=== PATIENT | male | born 1975 | race Caucasian/White ===

== ENCOUNTER 2018-03-10 21:10 | Observation (INO) ==
[2018-03-10] MEDS: Nitroglycerin 0.4 MG TAB.SUBL SL PRN ×3 (22:04→22:16)
[2018-03-10 22:17] LABS: BUN/Creatinine Ratio 17 (6-26); Blood Urea Nitrogen 9 mg/dL (6-20); Calcium 9.6 mg/dL (8.6-10.3); Carbon Dioxide 25 mEq/L (23-29); Chloride 105 mEq/L (98-107); Glucose 199 mg/dL (70-105); Osmolality,Calculated 288 (280-300); Potassium 3.5 mEq/L (3.5-5.1); Sodium 137 mEq/L (136-145); Troponin I < 0.03 ng/mL (< 0.04); eGFR For African Americans > 60 (> 60); eGFR For Non-African Americans > 60 (> 60)
--- NOTE | 2018-03-10 22:19 | Emergency Department Note ---
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 Patient reports he woke up this morning and just has felt terrible all day. Reports laying in bed most of the day. States that he is also had left sternal chest discomfort with some radiation up into his jaw that he reports as a heavy pressure. Has no history of coronary artery disease, but does have a family history. States he has a history of diabetes as well. Has had some sick contacts recently, but symptoms have been read. He is also complaining of exertional dyspnea. Some subjective fevers at home. No real cough. No pain or swelling in his legs. Severity scale (1-10): 6 - Related Data Home Medications Medication Instructions Recorded Confirmed Unable To Obtain [Unable to Obtain] 03/11/18 03/11/18 Allergies Allergy/AdvReac Type Severity Reaction Status Date / Time Hydromorphone [From Dilaudid] Allergy Rash Verified 07/15/17 22:28 Paroxetine [From Paxil] Allergy Hallucinati Verified 07/15/17 22:28 ng Review of Systems: As reviewed in the HPI. All other systems reviewed are negative or normal. Chest Pain PMH - Past Medical History Medical history: Reports: non-contributory, diabetes, hyperlipidemia, hypertension Surgical history: Reports: vasectomy, other Psychiatric history: Reports: anxiety, depression, panic disorder - Social History Smoking Status: Never smoker Alcohol use: Reports: rarely Drug use: Reports: none Physical Exam - General Limitations: no limitations General appearance: alert, in no apparent distress, other (Patient appears ill but nontoxic) - Head Head exam: atraumatic, normocephalic, normal inspection - Eye Eye exam: Present: normal appearance, PERRL, EOMI - ENT ENT exam: normal exam, normal oropharynx, mucous membranes moist - Chest Chest inspection: Present: normal inspection, symmetric chest wall rise - Respiratory Respiratory exam: Present: normal lung sounds bilaterally - Cardiovascular Cardiovascular exam: Present: normal rhythm, tachycardia, normal heart sounds - Abdominal Exam Abdominal exam: Present: soft, Non-Tender. Absent: tenderness, distention, guarding, rebound, rigidity - Extremities Exam Extremities exam: Present: normal inspection, full ROM. Absent: tenderness, pedal edema - Neurological Exam Neurological exam: Present: alert, oriented X3 - Psychiatric Psychiatric exam: Present: normal affect, normal mood - Skin Skin exam: Present: warm, dry, intact, normal color Course Course Narrative: Patient presenting with weakness, chest pain, shortness breath. Patient does not look like he feels well. Check labs, EKG, chest x-ray, troponin and d- dimer. - Reevaluation(s) Reevaluation #1: Workup is unremarkable, but patient still appears unwell. He is diabetic and having chest discomfort. No previous cardiac workup. We will admit for chest pain rule out. Vital Signs Temperature 98.2 F 03/10/18 21:16 Pulse Rate 106 03/10/18 21:16 Respiratory Rate 22 03/10/18 21:16 Blood Pressure 143/88 03/10/18 21:16 O2 Sat by Pulse Oximetry 97 03/10/18 21:16 Temperature 98.2 F 03/11/18 01:20 Pulse Rate 102 03/11/18 01:20 Respiratory Rate 14 03/11/18 01:20 Blood Pressure 148/91 03/11/18 01:20 O2 Sat by Pulse Oximetry 96 03/11/18 01:20 Oxygen Delivery Oxygen Delivery Room Air Chest Pain - Medical Records Medical records reviewed: Yes I reviewed the patient's medical records. - Lab Data Lab results reviewed: Yes I reviewed the patient's lab results. Result diagrams: 03/10/18 21:32 03/10/18 21:32 Lab Results 03/10/18 03/10/18 03/10/18 Range/Units 21:32 21:32 21:32 WBC 7.1 (4.3-11.1) K/mcL RBC 5.01 (4.19-5.50) M/mcL Hgb 16.2 (12.9-16.9) g/dL Hct 43.1 (37.5-50.1) % MCV 86.0 (83.0-100.0) fL MCH 32.3 (28.0-33.3) pg MCHC 37.6 H (31.6-35.5) g/dL RDW 11.8 (11.5-14.5) % Plt Count 208 (140-400) K/mcL MPV 10.5 (9.4-12.4) fL Immature Gran % 0.6 (0-4) % Seg Neutrophils % 53.3 % Lymphocytes % 33.2 % Monocytes % 9.6 % Eosinophils % 2.5 % Basophils % 0.8 % Neutrophils # 3.8 (1.6-8.9) K/mcL Lymphocytes # 2.4 (0.6-4.6) K/mcL Monocytes # 0.7 (0.0-1.3) K/mcL Eosinophils # 0.2 (0.0-0.6) K/mcL Basophils # 0.1 (0.0-0.2) K/mcL Immature Plt Fraction 4.7 (1.1-6.1) % PT (9.4-12.1) Seconds INR APTT (26.0-36.0) Seconds D-Dimer (0-500) ng/mLFEU Sodium 137 (136-145) mEq/L Potassium 3.5 (3.5-5.1) mEq/L Chloride 105 (98-107) mEq/L Carbon Dioxide 25 (23-29) mEq/L BUN 9 (6-20) mg/dL Creatinine 0.54 L (0.70-1.30) mg/dL Est GFR ( Amer) > 60 (> 60) Est GFR (Non-Af Amer) > 60 (> 60) BUN/Creatinine Ratio 17 (6-26) Glucose 199 H (70-105) mg/dL Calculated Osmolality 288 (280-300) Calcium 9.6 (8.6-10.3) mg/dL Troponin I < 0.03 (< 0.04) ng/mL B-Natriuretic Peptide 8 (Less than 100) pg/mL Specimen Rejected 03/10/18 03/10/18 Range/Units 21:32 22:15 WBC (4.3-11.1) K/mcL RBC (4.19-5.50) M/mcL Hgb (12.9-16.9) g/dL Hct (37.5-50.1) % MCV (83.0-100.0) fL MCH (28.0-33.3) pg MCHC (31.6-35.5) g/dL RDW (11.5-14.5) % Plt Count (140-400) K/mcL MPV (9.4-12.4) fL Immature Gran % (0-4) % Seg Neutrophils % % Lymphocytes % % Monocytes % % Eosinophils % % Basophils % % Neutrophils # (1.6-8.9) K/mcL Lymphocytes # (0.6-4.6) K/mcL Monocytes # (0.0-1.3) K/mcL Eosinophils # (0.0-0.6) K/mcL Basophils # (0.0-0.2) K/mcL Immature Plt Fraction (1.1-6.1) % PT 10.6 (9.4-12.1) Seconds INR 1.0 APTT 28.9 (26.0-36.0) Seconds D-Dimer < 215 (0-500) ng/mLFEU Sodium (136-145) mEq/L Potassium (3.5-5.1) mEq/L Chloride (98-107) mEq/L Carbon Dioxide (23-29) mEq/L BUN (6-20) mg/dL Creatinine (0.70-1.30) mg/dL Est GFR ( Amer) (> 60) Est GFR (Non-Af Amer) (> 60) BUN/Creatinine Ratio (6-26) Glucose (70-105) mg/dL Calculated Osmolality (280-300) Calcium (8.6-10.3) mg/dL Troponin I (< 0.04) ng/mL B-Natriuretic Peptide (Less than 100) pg/mL Specimen Rejected Volume - Radiology Data Radiology results reviewed: Yes I reviewed the patient's radiology results. - EKG Data EKG attestation: Yes I reviewed and interpreted this EKG. EKG results narrative: Sinus tach, rate 106,. 148, QRS 92, QTC 409, normal axis, no acute ischemic changes
[2018-03-10 22:40] LABS: Basophils # 0.1 K/mcL (0.0-0.2); Basophils % 0.8 %; Eosinophils # 0.2 K/mcL (0.0-0.6); Eosinophils % 2.5 %; Hematocrit 43.1 % (37.5-50.1); Hemoglobin 16.2 g/dL (12.9-16.9); Immature Granulocytes % 0.6 % (0-4); Immature Platelets 4.7 % (1.1-6.1); Lymphocytes # 2.4 K/mcL (0.6-4.6); Lymphocytes % 33.2 %; Mean Corpuscular Hemoglobin 32.3 pg (28.0-33.3); Mean Platelet Volume 10.5 fL (9.4-12.4); Monocytes # 0.7 K/mcL (0.0-1.3); Monocytes % 9.6 %; Neutrophils # 3.8 K/mcL (1.6-8.9); Platelet Count 208 K/mcL (140-400); Red Blood Count 5.01 M/mcL (4.19-5.50); Red Cell Distribution Width 11.8 % (11.5-14.5); Segmented Neutrophils % 53.3 %
[2018-03-10 22:40] LABS: Prothrombin Time 10.6 Seconds (9.4-12.1)
[2018-03-10 22:42] LABS: Mean Corpuscular HGB Conc 37.6 g/dL (31.6-35.5)
[2018-03-10 22:43] LABS: Activated Partial Thrombo Time 28.9 Seconds (26.0-36.0)
[2018-03-10 22:46] LABS: D-Dimer < 215 ng/mLFEU (0-500)
[2018-03-11] MEDS ORDERED: 0.9 % Sodium Chloride 1,000 ML IVC ONE (00:01)
[2018-03-11] MEDS ORDERED: Ondansetron 4 MG/2 ML VIAL ONE (00:57)
[2018-03-11] MEDS ORDERED: Ondansetron 4 MG/2 ML VIAL IVP ONE (01:09)
--- NOTE | 2018-03-11 01:14 | Emergency Department Note ---
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 Diabetes mellitus complication status: without complication Qualified Code(s): E11.9 - Type 2 diabetes mellitus without complications Disposition: Admitted As Inpatient Condition: Good General Adult HPI - General Chief complaint: ED Chest Pain Stated complaint: CP Time Seen by Provider: 03/10/18 21:25 Source: patient Mode of arrival: ambulatory Limitations: no limitations Nursing Notes Reviewed: Yes Vital Signs Reviewed: Yes - History of Present Illness Pain Scale: 6 - Related Data Home Medications Medication Instructions Recorded Confirmed Unable To Obtain [Unable to Obtain] 03/11/18 03/11/18 Allergies Allergy/AdvReac Type Severity Reaction Status Date / Time Hydromorphone [From Dilaudid] Allergy Rash Verified 07/15/17 22:28 Paroxetine [From Paxil] Allergy Hallucinati Verified 07/15/17 22:28 ng Past Medical History - Past Medical History Medical history: Reports: non-contributory, diabetes, hyperlipidemia, hypertension Surgical history: Reports: vasectomy, other Psychiatric history: Reports: anxiety, depression, panic disorder - Social History Smoking Status: Never smoker Smokeless Tobacco Status: No Alcohol use: Reports: rarely Drug use: Reports: none Physical Exam - General Limitations: no limitations General appearance: alert, in no apparent distress, other (Patient appears ill but nontoxic) Course Vital Signs Temperature 98.2 F 03/10/18 21:16 Pulse Rate 106 03/10/18 21:16 Respiratory Rate 22 03/10/18 21:16 Blood Pressure 143/88 03/10/18 21:16 O2 Sat by Pulse Oximetry 97 03/10/18 21:16 Temperature 98.2 F 03/11/18 01:20 Pulse Rate 102 03/11/18 01:20 Respiratory Rate 14 03/11/18 01:20 Blood Pressure 148/91 03/11/18 01:20 O2 Sat by Pulse Oximetry 96 03/11/18 01:20 Oxygen Delivery Oxygen Delivery Room Air Medical Decision Making - Lab Data Result diagrams: 03/11/18 03:55 03/11/18 03:55 Lab Results 03/10/18 03/10/18 03/10/18 Range/Units 21:32 21:32 21:32 WBC 7.1 (4.3-11.1) K/mcL RBC 5.01 (4.19-5.50) M/mcL Hgb 16.2 (12.9-16.9) g/dL Hct 43.1 (37.5-50.1) % MCV 86.0 (83.0-100.0) fL MCH 32.3 (28.0-33.3) pg MCHC 37.6 H (31.6-35.5) g/dL RDW 11.8 (11.5-14.5) % Plt Count 208 (140-400) K/mcL MPV 10.5 (9.4-12.4) fL Immature Gran % 0.6 (0-4) % Seg Neutrophils % 53.3 % Lymphocytes % 33.2 % Monocytes % 9.6 % Eosinophils % 2.5 % Basophils % 0.8 % Neutrophils # 3.8 (1.6-8.9) K/mcL Lymphocytes # 2.4 (0.6-4.6) K/mcL Monocytes # 0.7 (0.0-1.3) K/mcL Eosinophils # 0.2 (0.0-0.6) K/mcL Basophils # 0.1 (0.0-0.2) K/mcL Immature Plt Fraction 4.7 (1.1-6.1) % PT (9.4-12.1) Seconds INR APTT (26.0-36.0) Seconds D-Dimer (0-500) ng/mLFEU Sodium 137 (136-145) mEq/L Potassium 3.5 (3.5-5.1) mEq/L Chloride 105 (98-107) mEq/L Carbon Dioxide 25 (23-29) mEq/L BUN 9 (6-20) mg/dL Creatinine 0.54 L (0.70-1.30) mg/dL Est GFR ( Amer) > 60 (> 60) Est GFR (Non-Af Amer) > 60 (> 60) BUN/Creatinine Ratio 17 (6-26) Glucose 199 H (70-105) mg/dL Calculated Osmolality 288 (280-300) Calcium 9.6 (8.6-10.3) mg/dL Troponin I < 0.03 (< 0.04) ng/mL B-Natriuretic Peptide 8 (Less than 100) pg/mL Specimen Rejected 03/10/18 03/10/18 Range/Units 21:32 22:15 WBC (4.3-11.1) K/mcL RBC (4.19-5.50) M/mcL Hgb (12.9-16.9) g/dL Hct (37.5-50.1) % MCV (83.0-100.0) fL MCH (28.0-33.3) pg MCHC (31.6-35.5) g/dL RDW (11.5-14.5) % Plt Count (140-400) K/mcL MPV (9.4-12.4) fL Immature Gran % (0-4) % Seg Neutrophils % % Lymphocytes % % Monocytes % % Eosinophils % % Basophils % % Neutrophils # (1.6-8.9) K/mcL Lymphocytes # (0.6-4.6) K/mcL Monocytes # (0.0-1.3) K/mcL Eosinophils # (0.0-0.6) K/mcL Basophils # (0.0-0.2) K/mcL Immature Plt Fraction (1.1-6.1) % PT 10.6 (9.4-12.1) Seconds INR 1.0 APTT 28.9 (26.0-36.0) Seconds D-Dimer < 215 (0-500) ng/mLFEU Sodium (136-145) mEq/L Potassium (3.5-5.1) mEq/L Chloride (98-107) mEq/L Carbon Dioxide (23-29) mEq/L BUN (6-20) mg/dL Creatinine (0.70-1.30) mg/dL Est GFR ( Amer) (> 60) Est GFR (Non-Af Amer) (> 60) BUN/Creatinine Ratio (6-26) Glucose (70-105) mg/dL Calculated Osmolality (280-300) Calcium (8.6-10.3) mg/dL Troponin I (< 0.04) ng/mL B-Natriuretic Peptide (Less than 100) pg/mL Specimen Rejected Volume Attestation Statement - Attestation Attestation: I, Benito Galaviz MD, personally evaluated this patient and discussed their management with the resident physician. I reviewed the resident's note and agree with the documented findings, medical decision making, and plan of care. 42-year-old male presents to the emergency department with a complaint of generalized weakness and malaise all day today. He complains of left mid substernal chest pain all day. Some radiation to the neck and jaw. Some mild shortness of breath. Some nausea. Some diaphoresis. No prior history of heart disease. Pain has been pretty much constant all day and does not seem worse with exertion and is not relieved with rest. On examination patient is a well-developed well-nourished male in no acute distress. He is alert and oriented 3. There is no cyanosis. Mild diaphoresis. Chest is nontender to palpation. Breath sounds are clear and equal bilaterally. Heart regular with a mild tachycardia. Abdomen soft with normal bowel sounds. EKG shows a sinus tachycardia with ventricular rate of 106. Nonspecific T-wave abnormality. No acute ST segment elevation or depression. Chest x-ray negative. Labs reviewed and unremarkable. Troponin normal. The hospitalist, Dr. Webber, was consulted and accepted admission of the patient. Patient had an episode of vomiting a large amount just prior to being transferred from the emergency department to the floor and he became diaphoretic and had increased chest pain. Repeat EKG was obtained at that time and showed a sinus tachycardia with ventricular rate of 108. Nonspecific T- wave abnormality. No acute ST segment elevation or depression. No change from initial EKG.
[2018-03-11] MEDS ORDERED: Naloxone 0.4 MG/ML INJ IVP PRN (01:17)
[2018-03-11] MEDS ORDERED: D5% in Water 1,000 ML IVC PRN (01:17)
[2018-03-11] MEDS ORDERED: *HR* Dextrose 50 % in Water (Syg) 50 ML SYRINGE IVP PRN (01:17)
[2018-03-11] MEDS ORDERED: Acetaminophen 325 MG TABLET PO PRN (01:17)
[2018-03-11] MEDS ORDERED: Dextrose Gel 15 GM/37.5 ML TUBE PO PRN ×2 (01:17)
[2018-03-11] MEDS ORDERED: *HR* FentaNYL (PF) 100 MCG/2 ML VIAL IVP PRN (01:20)
--- NOTE | 2018-03-11 02:05 | Internal Med History&Physical ---
Date of Encounter: 03/11/18 Time of Encounter: 01:00 Internal Medicine - H&P: HPI Chief complaint: chest pain Admitted From: Emergency Dept Plans for Post Hospital Care: Home History of present illness: Mr. Nixon is a 42 year old male who presents with complaints of chest pain and worsening indigestion since 8:30 in the morning yesterday. It awoke him from sleep and he's been having worsening indigestion, chest pain, and nausea throughout the day. states he has had some chills but no fevers, cough, or night sweats. Because the pain persisted and worsened, he came to the ER. Initial workup was negative, and he was admitted to hospitalist service. Upon my assessment of the patient in the ER, patient is resting in bed comfortably. He does state he still has some mild indigestion but no chest pain. He denies any difficulty breathing. Upon further questioning, he does have frequent and daily right upper quadrant abdominal pain often associated with certain types of food ingestion. I reviewed his old records and note he had a gallbladder ultrasound a little over one year ago showing gallstones and gallbladder polyp. He still has his gallbladder. He also states he has been taking daily anti-inflammatory medications for his hip arthritis. He has had an upset stomach lately. He denies any hematemesis, coffee-ground emesis, and/ or melena. He denies any prior history of gastric or duodenal ulcers. Patient's cardiac risk factors include type 2 diabetes and family history. There is also family history of gallbladder disease as well. Past Med Surg Social Fam HX - Past Medical History Attestation: Yes The following information was validated with the patient. Source: patient, old records reviewed, obtained from family Medical history: diabetes, hyperlipidemia, hypertension Psychiatric history: anxiety, depression, panic disorder - Past Surgical History Surgical History: vasectomy - Social History Smoking Status: Never smoker Smokeless Tobacco Status: No Alcohol use: rarely Drug use: none Current living situation: Home, With Family Activity Level: Independent ambulation Recent Out of Country Travel Within the Last 8 Weeks: No - Family History Mother Living Status: Hx Family Cardiac Disorders: Yes Hx Family Cancer: Yes Hx Family GI Disorders: No Father History Unknown: Yes Internal Medicine - H&P: Meds Unable To Obtain [Unable to Obtain] 03/11/18 [History] 3 Allergy/AdvReac Type Severity Reaction Status Date / Time Hydromorphone [From Dilaudid] Allergy Rash Verified 07/15/17 22:28 Paroxetine [From Paxil] Allergy Hallucinati Verified 07/15/17 22:28 ng - Constitutional Constitutional: no chills, no fever(s), no night sweats - EENT Eyes: no decreased night vision, no diplopia Ears: no ear pain, no tinnitus Nose, mouth and throat: no nasal congestion, no sinus pressure, no sore throat - Cardiovascular Cardiovascular ROS IM: chest pain, diaphoresis, no dyspnea, no dyspnea on exertion, no orthopnea, no palpitations, no paroxysmal nocturnal dyspnea, no syncope - Respiratory Respiratory: no cough, no dyspnea, no hemoptysis - Gastrointestinal Gastrointestinal: abdominal pain, heartburn, nausea, vomiting, no coffee ground emesis, no diarrhea, no hematemesis, no hematochezia, no melena - Genitourinary Genitourinary ROS male: no dysuria, no flank pain, no hematuria - Musculoskeletal Musculoskeletal ROS IM: arthralgias, back pain - Integumentary Integumentary IM: no rash, no jaundice - Neurological Neurological ROS: no dizziness, no focal weakness, no frequent falls, no headache(s) - Psychiatric Psychiatric: no anxiety, no depression - Endocrine Endocrine IM: no polydipsia, no polyuria - Hematologic/Lymphatic Hematologic/Lymphatic: no easy bruising, no lymphadenopathy - Allergic/Immunologic Allergic/Immunologic: GI upset with certain foods (fatty and greasy), no wheezing - Constitutional Vitals: Temp Pulse Resp BP Pulse Ox 98.2 F 102 14 148/91 96 03/11/18 01:20 03/11/18 01:20 03/11/18 01:20 03/11/18 01:20 03/11/18 01:20 General appearance: Present: cooperative, A&O X 3, pleasant, no acute distress, answers questions appropriately - Head Head exam: Present: atraumatic, normal inspection - Eye Eye exam: Present: EOMI, normal appearance, PERRL. Absent: scleral icterus Pupils: Present: normal accommodation - ENT ENT exam: Present: mucous membranes dry, normal exam, normal oropharynx - Neck Neck exam general surgery: Present: full ROM, supple. Absent: lymphadenopathy, tenderness, nuchal rigidity, thyromegaly - Respiratory Respiratory exam: Present: CTAB. Absent: chest wall tenderness, rales, respiratory distress, rhonchi, wheezes - Cardiovascular Cardiovascular exam: Present: RRR, +S1, +S2. Absent: diastolic murmur, systolic murmur - GI/Abdominal GI/Abdominal exam: Present: normal bowel sounds, soft, tenderness (mild RUQ pain -- > radiates to chest), no peritoneal signs. Absent: guarding, hepatomegaly, mass, rebound, splenomegaly - Extremities Exam Extremities exam: Present: full ROM, normal capillary refill, warm, radial pulses palpable and symmetrical. Absent: calf tenderness, joint swelling, tenderness - Back Exam Back exam: Present: normal inspection. Absent: CVA tenderness (L), CVA tenderness (R) - Neurological Exam Neurological exam: Present: alert, CN II-XII intact, oriented X3, no focal deficits - Psychiatric Psychiatric exam: Present: normal affect, normal mood - Skin Skin exam: Present: dry, warm. Absent: rash Internal Med - H&P Results - Labs CBC & Chem 7: 03/10/18 21:32 03/10/18 21:32 - EKG Data -: EKG Interpreted by Myself - EKG Data Prior EKG available for review: no EKG comments: 03/11/18 02:09 Sinus tachycardia -- HR 105; no acute findings - Diagnostic Studies Chest x-ray Status: image reviewed by me (negative) - Assessment and plan (1) Chest pain Current Visit: Yes Status: Acute Assessment and plan: 1. Will trend troponins and EKG's. 2. Etiology likely GI in nature (GB). 3. Stress testing can be done if necessary, but would not pursue until after GI work-up. 4. GI work-up as below. Qualifiers: Chest pain type: other chest pain Qualified Code(s): R07.89 - Other chest pain; R07.8 - Other chest pain (2) Right upper quadrant abdominal pain Current Visit: Yes Status: Acute Assessment and plan: 1. GB disease/stones likely etiology of chest pain. 2. Will order GB ultrasound. 3. Patient may need HIDA scan and/or EGD (given chronic NSAID use). 4. will place on IV PPI. (3) Type 2 diabetes mellitus Current Visit: Yes Status: Chronic Assessment and plan: 1. Need ot verify home meds. 2. Hold oral agents. 3. Will use SSI and adjust meds as necessary. 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 Heparin SQ.
[2018-03-11] MEDS: 0.9 % Sodium Chloride 1,000 ML IVC SCH ×2 (02:28→11:52)
[2018-03-11] MEDS: Pantoprazole 40 MG VIAL IVP SCH ×3 (02:28→17:25)
[2018-03-11 04:52] LABS: Basophils # 0.1 K/mcL (0.0-0.2); Basophils % 0.9 %; Eosinophils # 0.1 K/mcL (0.0-0.6); Eosinophils % 1.6 %; Hematocrit 39.1 % (37.5-50.1); Hemoglobin 14.4 g/dL (12.9-16.9); Immature Granulocytes % 0.6 % (0-4); Lymphocytes # 1.9 K/mcL (0.6-4.6); Lymphocytes % 27.1 %; Mean Corpuscular HGB Conc 36.8 g/dL (31.6-35.5); Mean Corpuscular Hemoglobin 31.5 pg (28.0-33.3); Mean Corpuscular Volume 85.6 fL (83.0-100.0); Mean Platelet Volume 10.8 fL (9.4-12.4); Monocytes # 0.6 K/mcL (0.0-1.3); Monocytes % 9.1 %; Neutrophils # 4.1 K/mcL (1.6-8.9); Platelet Count 183 K/mcL (140-400); Red Blood Count 4.57 M/mcL (4.19-5.50); Red Cell Distribution Width 11.9 % (11.5-14.5); Segmented Neutrophils % 60.7 %
[2018-03-11 04:58] LABS: Prothrombin Time 10.9 Seconds (9.4-12.1)
[2018-03-11 05:00] LABS: Activated Partial Thrombo Time 27.5 Seconds (26.0-36.0)
[2018-03-11 05:12] LABS: Alanine Aminotransferase 28 Units/L (7-52); Albumin 3.6 g/dL (3.5-5.7); Albumin/Globulin Ratio 1.6 (1.1-2.2); Alkaline Phosphatase 63 Units/L (34-104); Aspartate Amino Transferase 22 Units/L (13-39); BUN/Creatinine Ratio 19 (6-26); Bilirubin,Total 1.9 mg/dL (0.3-1.0); Blood Urea Nitrogen 9 mg/dL (6-20); Calcium 8.8 mg/dL (8.6-10.3); Carbon Dioxide 25 mEq/L (23-29); Chloride 107 mEq/L (98-107); Chol/HDL Ratio 4.8 (0-4.9); Cholesterol 155 mg/dL (< 200); Globulin 2.2 g/dL (2.4-3.5); Glucose 196 mg/dL (70-105); HDL Cholesterol 32 mg/dL (40-59); LDL Cholesterol,Calculated 89 mg/dL (0-99); Magnesium 1.9 mg/dL (1.6-2.6); Osmolality,Calculated 290 (280-300); Potassium 3.7 mEq/L (3.5-5.1); Sodium 138 mEq/L (136-145); Total Protein 5.8 g/dL (6.4-8.9); Triglycerides 172 mg/dL (< 150); eGFR For African Americans > 60 (> 60); eGFR For Non-African Americans > 60 (> 60)
[2018-03-11] MEDS: Insulin LISPRO 300 UNITS/3 ML VIAL SQ SCH ×3 (06:40→17:26)
[2018-03-11] MEDS: *HR* Heparin 5,000 UNIT/ML VIAL SQ SCH ×2 (06:41→17:26)
--- NOTE | 2018-03-11 13:05 | Internal Med Progress Note ---
Date of Encounter: 03/11/18 Time of Encounter: 11:05 - Assessment and plan (1) Chest pain Current Visit: Yes Status: Acute Assessment and plan: Patient presents with midsternal, persistent chest pain that lasted all day yesterday. Patient reports he awakened with the chest pain, as the day wore on it radiated into his bilateral neck, and upper back between his shoulder blades. He does report associated nausea and vomiting. He reports that he has had this chest pain "for a while". He said normally the pain lasts about 2 hours, this time it was concerning due to the length of time that lasted. Currently, patient reports it is 2/10 and denies shortness of breath, nausea, vomiting, diaphoresis, diarrhea. Physical exam is unremarkable. He is no tenderness in epigastric area, Brennan' s sign negative. Abdomen is soft and nontender with bowel sounds present. AST and ALTs are within normal limits, alk phosphatase is normal. Pt has no leukocytosis, fever, chills. Chest x-ray negative. Gallbladder ultrasound shows cholelithiasis with no sonographic evidence of cholecystitis. Had panic steatosis is noted, no evidence of intra-or extrahepatic ductal dilatation. Stress test ordered for tomorrow. Pt with risk factors of diabetes, HTN. Continue telemetry Pain control Monitor labs and vitals. Qualifiers: Chest pain type: other chest pain Qualified Code(s): R07.89 - Other chest pain; R07.8 - Other chest pain (2) Right upper quadrant abdominal pain Current Visit: Yes Status: Acute Assessment and plan: Pt with cholelithiasis per US 03/11, no acute cholecysitis. Physical exam unremarkable. Labs WNL. Prior gallbladder ultrasound in October, showed cholelithiasis, at least one cholesterol polyp and a small amount of sludge. Also notices at least 1: A stent in the polyp appears stable since 2011. [place], there was no significant dilatation of the common duct. At that time there was hyperechoic liver parenchyma, consistent with mild diffuse fatty infiltration. Discussed hepatic steatosis with pt and , encouraged lifestyle changes. Pt and appeared reluctant, but listened to education. (3) Type 2 diabetes mellitus Current Visit: Yes Status: Chronic Assessment and plan: A1c 8.9% in September,. Will redraw in the a.m. Discussed lifestyle modifications with pt and , they seem reluctant, but listened to education. Continue SSI, accuchecks achs, and diabetic diet. Qualifiers: Diabetes mellitus long-term insulin use: without manager long term care use Diabetes mellitus complication status: without complication Qualified Code(s): E11.9 - Type 2 diabetes mellitus without complications (4) DVT prophylaxis Current Visit: Yes Status: Acute Assessment and plan: Heparin SQ BID. Encourage ambulation (5) HTN (hypertension) Current Visit: Yes Status: Acute Assessment and plan: Pt with multiple elevated BP readings since admission. Pt denies prior history of HTN and is not on an antihypertensive. Renal function is stable, pt is a diabetic. Will add Lisinopril 2.5mg po daily. Continue to monitor labs and vitals per admission order. Qualifiers: Hypertension type: essential hypertension Qualified Code(s): I10 - Essential (primary) hypertension (6) Hypertriglyceridemia without hypercholesterolemia Current Visit: Yes Status: Acute Assessment and plan: Pt denies prior history of HLD. I have encouraged lifestyle modifications. GBUS showed hepatic steatosis. Encouraged pt to start diet modifications and exercise regimen for BP, diabetes , and cholesterol. Pt appears to be reluctant to any modifications and states that he likes to eat fried, fatty foods and is not compliant with diabetic diet. Would recommend recheck with PCP in the next 3-4 mos and initiate treatment if unchanged. - Time Spent With Patient Total time spent is greater than 50% in coordination of care (as documented) at patient's floor/unit and/or counseling patient: less than 15 minutes - Subjective Interval history: Patient was seen and assessed at bedside 11:05 AM. Patient's and in-laws were present. Patient reports that now his chest pain is 2/10. He describes it as midsternal, persistent, lasted all day with associated nausea and vomiting. The pain was present when he awakened yesterday morning. As the day wore on the pain radiated into bilateral neck, as well as upper back between shoulder plates. Patient states he has had this pain frequently in the past, normally lasts approximately 2 hours. Yesterday he could not get it to go away. He reports eating pizza prior to going to bed the night before the onset of the pain. He denies fever, chills. He denies headache, blurred vision, anorexia, weight loss, shortness of breath. Patient does not smoke, use alcohol , or recreational drugs. - Constitutional Vitals: Temp Pulse Resp BP Pulse Ox 98.3 F 106 16 143/93 95 03/11/18 11:23 03/11/18 11:23 03/11/18 11:23 03/11/18 11:23 03/11/18 11:23 General appearance: Present: cooperative, A&O X 3, pleasant, no acute distress, answers questions appropriately - Head Head exam: Present: atraumatic, normal inspection, normocephalic - Eye Eye exam: Present: normal appearance, conjuntiva pink, sclera anicteric - Neck Neck exam general surgery: Present: normal inspection, supple, trachea midline. Absent: lymphadenopathy, tenderness, thyromegaly - Respiratory Respiratory exam: Present: CTAB. Absent: accessory muscle use, chest wall tenderness, decreased breath sounds, prolonged expiratory phase, rales, rhonchi , wheezes - Cardiovascular Cardiovascular exam: Present: RRR, +S1, +S2. Absent: diastolic murmur, gallop, rubs, systolic murmur - GI/Abdominal GI/Abdominal exam: Present: normal bowel sounds, soft. Absent: distended, firm , hepatomegaly, tenderness - Extremities Exam Extremities exam: Present: normal capillary refill, normal inspection, warm, radial pulses palpable and symmetrical. Absent: calf tenderness, cyanotic, pedal edema, tenderness - Neurological Exam Neurological exam: Present: alert, oriented X3, no focal deficits. Absent: altered, facial droop, speech deficit - Skin Skin exam: Present: dry, intact, normal color, warm. Absent: rash Internal Medicine: Result - Labs CBC & Chem 7: 03/11/18 03:55 03/11/18 03:55 Labs: Short CBC 03/11/18 Range/Units 03:55 WBC 6.8 (4.3-11.1) K/mcL Hgb 14.4 D (12.9-16.9) g/dL Hct 39.1 (37.5-50.1) % Plt Count 183 (140-400) K/mcL Neutrophils # 4.1 (1.6-8.9) K/mcL BMP 03/11/18 03:55 Sodium 138 Potassium 3.7 Chloride 107 Carbon Dioxide 25 BUN 9 Creatinine 0.47 L Glucose 196 H Calcium 8.8 Cardiac Enzymes 03/11/18 03/11/18 Range/Units 03:55 09:48 Troponin I < 0.03 < 0.03 (< 0.04) ng/mL Liver Function 03/11/18 Range/Units 03:55 Total Bilirubin 1.9 H (0.3-1.0) mg/dL AST 22 (13-39) Units/L ALT 28 (7-52) Units/L Alkaline Phosphatase 63 (34-104) Units/L Albumin 3.6 (3.5-5.7) g/dL - ABG Interpretation ABG results: PT/INR, D-dimer PT 10.9 Seconds (9.4-12.1) 03/11/18 03:55 D-Dimer < 215 ng/mLFEU (0-500) 03/10/18 22:15 - Impressions Impressions Gallbladder Ultrasound 03/11/18 10:00 IMPRESSION: 1. Cholelithiasis. No sonographic evidence of cholecystitis. 2. Hepatic steatosis. 3. No evidence of intra- or extrahepatic ductal dilatation. D/ / 03/11/2018 10:45:36 Oscar Sanders MD / arturo Interpreting Provider: Oscar Sanders MD Consult Discharge Plan - Plan Referrals: Edwina Lozano CNP [Primary Care Provider] -
[2018-03-12] MEDS: Insulin LISPRO 300 UNITS/3 ML VIAL SQ SCH ×3 (00:33→12:11)
[2018-03-12] MEDS ORDERED: Regadenoson 0.4 MG/5 ML SYRINGE IVP ONE (05:38)
[2018-03-12] MEDS: *HR* Heparin 5,000 UNIT/ML VIAL SQ SCH (06:11)
[2018-03-12 06:12] LABS: Basophils # 0.1 K/mcL (0.0-0.2); Eosinophils # 0.2 K/mcL (0.0-0.6); Eosinophils % 3.1 %; Hematocrit 37.8 % (37.5-50.1); Hemoglobin 13.5 g/dL (12.9-16.9); Immature Granulocytes % 0.4 % (0-4); Lymphocytes # 1.8 K/mcL (0.6-4.6); Lymphocytes % 36.5 %; Mean Corpuscular HGB Conc 35.7 g/dL (31.6-35.5); Mean Corpuscular Hemoglobin 31.1 pg (28.0-33.3); Mean Corpuscular Volume 87.1 fL (83.0-100.0); Mean Platelet Volume 10.4 fL (9.4-12.4); Monocytes # 0.6 K/mcL (0.0-1.3); Monocytes % 11.4 %; Neutrophils # 2.3 K/mcL (1.6-8.9); Platelet Count 164 K/mcL (140-400); Red Blood Count 4.34 M/mcL (4.19-5.50); Red Cell Distribution Width 11.8 % (11.5-14.5); Segmented Neutrophils % 47.6 %
[2018-03-12] MEDS: Pantoprazole 40 MG VIAL IVP SCH (06:16)
[2018-03-12 06:34] LABS: BUN/Creatinine Ratio 16 (6-26); Blood Urea Nitrogen 9 mg/dL (6-20); Calcium 8.5 mg/dL (8.6-10.3); Carbon Dioxide 26 mEq/L (23-29); Chloride 105 mEq/L (98-107); Glucose 245 mg/dL (70-105); Osmolality,Calculated 289 (280-300); Sodium 136 mEq/L (136-145); eGFR For African Americans > 60 (> 60); eGFR For Non-African Americans > 60 (> 60)
[2018-03-12 11:13] VITALS: BP 120/75
--- NOTE | 2018-03-12 13:00 | Discharge Summary ---
- NOTES TO OUTPATIENT PROVIDER Notes to Outpatient Provider: Recommend follow-up within 1-2 weeks for outpatient TTE Orders not resulted at time of discharge: Pending orders 03/11/18 06:00 ECG 12 lead ECG [ECG] AM 0600 03/11/18 12:53 NM dany perf SPECT multi [NM] Routine 03/12/18 05:26 Hgb A1C AM 0400 03/12/18 08:48 EV echocardiogram Routine 03/13/18 04:00 Basic Metabolic Panel AM 0400 Complete Blood Count [HEME] AM 0400 Date of Encounter: 03/12/18 Time of Encounter: 12:58 - Discharge Diagnosis (1) Chest pain Priority: Primary Status: Resolved Comments: presented with chest pain that radiated to bilateral neck and upper back. Serial troponins negative, EKG without acute ST changes. Stress test negative for ischemia or infarct. Patient declined inpatient echocardiogram. Chest pain resolved at time of discharge. Patient was advised to return to ER if chest pain/shortness of breath recurred. Recommend outpatient echocardiogram. Qualifiers: Chest pain type: other chest pain Qualified Code(s): R07.89 - Other chest pain; R07.8 - Other chest pain (2) Right upper quadrant abdominal pain Priority: Primary Status: Resolved Comments: RUQ US with evidence of cholelithiasis, no evidence of cholecystitis or intra-/ extrahepatic ductal dilation. LFTs normal. Etiology unknown; ABD pain resolved spontaneously. Patient declined further inpatient workup/treatment. (3) Type 2 diabetes mellitus Priority: Secondary Status: Chronic Comments: Per history. Uncontrolled, Hgb A1c 9.8%. Likely secondary to dietary noncompliance. Lifestyle modifications encouraged. Continue home diabetes medication regimen. Follow-up with PCP outpatient. Qualifiers: Diabetes mellitus mcfp insulin use: without intermodal customer service use Diabetes mellitus complication status: without complication Qualified Code(s): E11.9 - Type 2 diabetes mellitus without complications (4) HTN (hypertension) Priority: Primary Status: Acute Comments: new diagnosis. BP improved with adding lisinopril. Continue ACEI discharge. Recommend follow-up with PCP within one week for BP recheck. Qualifiers: Hypertension type: essential hypertension Qualified Code(s): I10 - Essential (primary) hypertension (5) Hypertriglyceridemia without hypercholesterolemia Priority: Secondary Status: Acute Comments: Triglycerides 172, LDL 89. Lifestyle/dietary modifications encouraged. Recommend follow-up with PCP Hospital course: Please see assessment and plan for Hospital course Discharge discussed with: patient (Seen and examined at bedside. Patient is new to me, information obtained from chart review and patient report. Patient says he feels back to baseline would like to discharge home today. No further chest pain or shortness of breath. He does have anxiety which she thinks may have contributed chest pain. He is declining to stay for an echocardiogram. Advised to follow-up with his PCP for outpatient cardiology referral. Also advised to return to ER if chest pain/SOB recurs. Patient verbalizes understanding.) - Time Spent with Patient Total time spent providing and/or coordinating discharge services: - Discharge Medications Prescriptions: Lisinopril [Zestril] 2.5 mg PO DAILY #30 tablet Home Medications: Fluticasone Propionate Nasal [Flonase] 1 spr NS BID 03/11/18 [History] Glimepiride [Amaryl] 2 mg PO DAILY 03/11/18 [History] Liraglutide [Victoza 3-Miky] 1.2 mg SQ DAILY 03/11/18 [History] Nabumetone [Relafen] 500 mg PO BID 03/11/18 [History] Omeprazole [PriLOSEC] 20 mg PO DAILY 03/11/18 [History] Lisinopril [Zestril] 2.5 mg PO DAILY #30 tablet 03/12/18 [Rx] Allergies/Adverse Reactions: 3 Allergy/AdvReac Type Severity Reaction Status Date / Time Hydromorphone [From Dilaudid] Allergy Rash Verified 07/15/17 22:28 Paroxetine [From Paxil] Allergy Hallucinati Verified 07/15/17 22:28 ng Date of admission: 03/11/18 00:44 Primary care physician: Edwina Lozano CNP Discharging clinician: Nela Morrison Anticipated date of discharge: 03/12/18 - Constitutional Vitals: Temp Pulse Resp BP Pulse Ox 98.4 F 97 16 120/75 97 03/12/18 11:12 03/12/18 11:12 03/12/18 11:12 03/12/18 11:12 03/12/18 11:12 General appearance: Present: cooperative, A&O X 3, pleasant, no acute distress, answers questions appropriately - Head Head exam: Present: atraumatic, normocephalic - Eye Eye exam: Present: PERRL, conjuntiva pink, sclera anicteric Pupils: Present: PERRL - Neck Neck exam general surgery: Present: supple, trachea midline. Absent: lymphadenopathy - Respiratory Respiratory exam: Present: CTAB. Absent: accessory muscle use, rales, rhonchi, wheezes - Cardiovascular Cardiovascular exam: Present: RRR, +S1, +S2. Absent: diastolic murmur, gallop, rubs, systolic murmur - GI/Abdominal GI/Abdominal exam: Present: normal bowel sounds, soft, no peritoneal signs. Absent: distended, tenderness - Extremities Exam Extremities exam: Present: warm, radial pulses palpable and symmetrical. Absent : calf tenderness, cyanotic, pedal edema - Neurological Exam Neurological exam: Present: CN II-XII intact, oriented X3, no focal deficits. Absent: pronater drift, facial droop, speech deficit - Skin Skin exam: Present: dry, intact - Patient Status Disposition: Home, Self-Care Condition: Good Functional capacity at discharge: independent ambulation Overall status at discharge: patient is back to baseline - Discharge Instructions Instructions: Lisinopril (By mouth), Chest Pain (DC), Diabetes Mellitus Type 2 in Adults (DC), Chronic Hypertension (DC), Hypertension (DC), Anxiety (DC) Follow Up With: Edwina Lozano CNP [Primary Care Provider] - 03/18/18 10:00 am (Please call for follow-up appointment within 7-10 business days) - Diet and Activity Activity: increase activity as tolerated Diet: diabetic diet, low fat, low cholesterol
[2018-03-13 14:47] LABS: Estimated Average Glucose 235 mg/dl; Hemoglobin A1C 9.8 %
--- NOTE | 2018-03-15 12:27 | Electrocardiograph Report ---
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
--- NOTE | 2018-03-15 14:26 | Electrocardiograph Report ---
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
== END 2018-03-12 13:44 | disposition home or self-care (01) ==
LOC: EMEROO 21:10 → 3BNU 21:10
PROVIDERS: ADMIT Internal Medicine; ATTEND Registered Nurse

== ENCOUNTER 2020-05-16 06:08 | Observation (INO) ==
[2020-05-16] MEDS ORDERED: Ibuprofen 600 MG TABLET PO ONE (06:17)
[2020-05-16 06:53] LABS: Bilirubin,Urine Negative (Negative); Blood,Urine Negative (Negative); Clarity,Urine Clear (Clear); Color,Urine Colorless (Yellow); Glucose,Urine (UA) >=1000 mg/dL (Normal); Ketones,Urine Negative (Negative); Leukocyte Esterase,Urine Negative (Negative); Nitrite,Urine Negative (Negative); PH,Urine 6.5 pH Units (5.0-8.0); Protein,Urine Trace mg/dL (Neg-Trace); Specific Gravity,Urine > 1.030 (1.010-1.025); Urobilinogen,Urine Normal (Normal)
[2020-05-16 07:01] LABS: Basophils # 0.1 K/mcL (0.0-0.2); Basophils % 0.9 %; Eosinophils # 0.2 K/mcL (0.0-0.6); Eosinophils % 2.9 %; Hematocrit 39.2 % (37.5-50.1); Hemoglobin 13.8 g/dL (12.9-16.9); Immature Granulocytes % 0.6 % (0-4); Lymphocytes # 1.8 K/mcL (0.6-4.6); Lymphocytes % 26.5 %; Mean Corpuscular HGB Conc 35.2 g/dL (31.6-35.5); Mean Corpuscular Hemoglobin 30.9 pg (28.0-33.3); Mean Corpuscular Volume 87.9 fL (83.0-100.0); Mean Platelet Volume 10.7 fL (9.4-12.4); Monocytes # 0.7 K/mcL (0.0-1.3); Monocytes % 10.2 %; Neutrophils # 3.9 K/mcL (1.6-8.9); Platelet Count 176 K/mcL (140-400); Red Blood Count 4.46 M/mcL (4.19-5.50); Red Cell Distribution Width 11.7 % (11.5-14.5); Segmented Neutrophils % 58.9 %; White Blood Count 6.7 K/mcL (4.3-11.1)
[2020-05-16 07:13] LABS: BUN/Creatinine Ratio 20 (6-26); Blood Urea Nitrogen 14 mg/dL (6-20); Calcium 9.3 mg/dL (8.6-10.3); Carbon Dioxide 25 mEq/L (23-29); Chloride 98 mEq/L (98-107); Glucose 651 mg/dL (70-105); Osmolality,Calculated 303 (280-300); Potassium 4.1 mEq/L (3.5-5.1); Sodium 131 mEq/L (136-145); eGFR For African Americans > 60 (> 60); eGFR For Non-African Americans > 60 (> 60)
[2020-05-16] MEDS ORDERED: Potassium Chloride Elixir 20 MEQ/15 ML UDC PO ONE (07:23)
[2020-05-16] MEDS ORDERED: Insulin Human Regular 100 UNIT in 0.9 % Sodium Chloride 100 ML IVC SCH ×2 (07:30→14:30)
[2020-05-16] MEDS: 0.9 % Sodium Chloride 1,000 ML IVC SCH ×2 (07:49→10:56)
[2020-05-16 07:54] LABS: VBG HCO3 25 mEq/L (21-27); VBG PCO2 39 mmHg (41-51); VBG PH 7.42 pH Units (7.32-7.42); VBG PO2 113 mmHg (25-50)
[2020-05-16] MEDS ORDERED: Lidocaine 1% 20 ML MDV INFILT ONE (10:48)
[2020-05-16] MEDS ORDERED: Doxycycline 100 MG in 0.9 % Sodium Chloride Mini Bag 100 ML IVPB ONE (11:04)
[2020-05-16] MEDS ORDERED: Isovue-370 500 ML BOTTLE IVP ONE (11:35)
[2020-05-16] MEDS ORDERED: Naloxone 0.4 MG/ML INJ IVP PRN (13:37)
[2020-05-16] MEDS ORDERED: Ondansetron 4 MG/2 ML VIAL IVP PRN (13:37)
[2020-05-16] MEDS ORDERED: Acetaminophen 325 MG TABLET PO PRN (13:37)
[2020-05-16] MEDS ORDERED: Insulin Regular, Human 100 UNIT/ML IV PRN (14:25)
[2020-05-16] MEDS ORDERED: D5% in 0.45% NACL 1,000 ML IVC PRN (14:25)
[2020-05-16] MEDS ORDERED: *HR* Dextrose 50 % in Water (Vial) 50 ML VIAL IVP PRN ×2 (14:25→17:22)
[2020-05-16 14:29] LABS: Magnesium 1.9 mg/dL (1.6-2.6); Phosphorous 4.2 mg/dL (2.7-4.5)
[2020-05-16] MEDS ORDERED: 0.45 % Sodium Chloride w/KCl 20 MEQ/1,000 ML MLS IVC SCH (14:30)
[2020-05-16] MEDS ORDERED: Dextrose Gel 15 GM/37.5 ML TUBE PO PRN ×2 (17:22)
[2020-05-16] MEDS ORDERED: D5% in Water 1,000 ML IVC PRN (17:22)
[2020-05-16] MEDS: cefTRIAXone 2,000 MG in Water for inj. (sterile) 20 ML IVP SCH (18:24)
[2020-05-16] MEDS: Insulin LISPRO 300 UNITS/3 ML VIAL SQ SCH (21:25)
[2020-05-16] MEDS: Vancomycin 1,500 MG/265 ML IV.SOLN IVPB SCH (22:22)
[2020-05-16] MEDS: *HR* Heparin 5,000 UNIT/ML VIAL SQ SCH (22:24)
[2020-05-16] MEDS ORDERED: Insulin LISPRO 300 UNITS/3 ML VIAL SQ ONE (23:20)
[2020-05-17 01:07] LABS: Basophils # 0.1 K/mcL (0.0-0.2); Basophils % 0.9 %; Eosinophils # 0.2 K/mcL (0.0-0.6); Eosinophils % 2.7 %; Hemoglobin 13.7 g/dL (12.9-16.9); Immature Granulocytes % 0.4 % (0-4); Lymphocytes # 2.1 K/mcL (0.6-4.6); Lymphocytes % 28.2 %; Mean Corpuscular HGB Conc 36.1 g/dL (31.6-35.5); Mean Corpuscular Hemoglobin 31.6 pg (28.0-33.3); Mean Corpuscular Volume 87.8 fL (83.0-100.0); Mean Platelet Volume 10.1 fL (9.4-12.4); Monocytes # 0.7 K/mcL (0.0-1.3); Monocytes % 9.6 %; Neutrophils # 4.3 K/mcL (1.6-8.9); Platelet Count 168 K/mcL (140-400); Red Blood Count 4.33 M/mcL (4.19-5.50); Red Cell Distribution Width 11.5 % (11.5-14.5); Segmented Neutrophils % 58.2 %; White Blood Count 7.4 K/mcL (4.3-11.1)
[2020-05-17 01:24] LABS: BUN/Creatinine Ratio 17 (6-26); Blood Urea Nitrogen 10 mg/dL (6-20); Calcium 8.5 mg/dL (8.6-10.3); Carbon Dioxide 25 mEq/L (23-29); Chloride 104 mEq/L (98-107); Glucose 240 mg/dL (70-105); Magnesium 1.7 mg/dL (1.6-2.6); Osmolality,Calculated 289 (280-300); Potassium 3.4 mEq/L (3.5-5.1); Sodium 136 mEq/L (136-145); eGFR For African Americans > 60 (> 60); eGFR For Non-African Americans > 60 (> 60)
[2020-05-17] MEDS: *HR* Heparin 5,000 UNIT/ML VIAL SQ SCH ×3 (05:16→21:04)
[2020-05-17] MEDS: Vancomycin 1,500 MG/265 ML IV.SOLN IVPB SCH ×2 (06:39→18:00)
[2020-05-17] MEDS: Insulin LISPRO 300 UNITS/3 ML VIAL SQ SCH ×4 (08:28→21:04)
[2020-05-17] MEDS ORDERED: Fluticasone Propionate Nasal 50 MCG/SPRAY BOTTLE NS PRN (08:57)
[2020-05-17] MEDS ORDERED: Ibuprofen 600 MG TABLET PO PRN (08:57)
[2020-05-17] MEDS ORDERED: lisinopriL 10 MG TABLET PO SCH (09:00)
[2020-05-17] MEDS ORDERED: Venlafaxine XR (24 HR) 150 MG CAP.ER.24H PO SCH (09:00)
[2020-05-17] MEDS ORDERED: Insulin DETEMIR 100 UNIT/ML X5UNITS SQ SCH (09:15)
[2020-05-17] MEDS: Sucralfate 1 GM TABLET PO SCH ×2 (10:05→21:03)
[2020-05-17] MEDS: Gabapentin 100 MG CAPSULE PO SCH ×3 (10:06→21:03)
[2020-05-17 10:43] LABS: Estimated Average Glucose 301 mg/dl
[2020-05-17] MEDS ORDERED: lisinopriL 10 MG TABLET PO ONE (11:19)
[2020-05-17] MEDS: cefTRIAXone 2,000 MG in Water for inj. (sterile) 20 ML IVP SCH (17:02)
[2020-05-18] MEDS: *HR* Heparin 5,000 UNIT/ML VIAL SQ SCH (06:46)
[2020-05-18 06:59] LABS: BUN/Creatinine Ratio 27 (6-26); Blood Urea Nitrogen 15 mg/dL (6-20); Calcium 8.6 mg/dL (8.6-10.3); Carbon Dioxide 26 mEq/L (23-29); Chloride 104 mEq/L (98-107); Glucose 214 mg/dL (70-105); Magnesium 1.8 mg/dL (1.6-2.6); Osmolality,Calculated 287 (280-300); Phosphorous 2.7 mg/dL (2.7-4.5); Potassium 3.8 mEq/L (3.5-5.1); Sodium 135 mEq/L (136-145); eGFR For African Americans > 60 (> 60); eGFR For Non-African Americans > 60 (> 60)
[2020-05-18] MEDS ORDERED: Vancomycin 1,250 MG/262.5 ML IV.SOLN IVPB SCH (08:00)
[2020-05-18] MEDS ORDERED: Insulin LISPRO 300 UNITS/3 ML VIAL SQ SCH (08:44)
[2020-05-18] MEDS: Vancomycin 1,500 MG/265 ML IV.SOLN IVPB SCH (08:45)
[2020-05-18] MEDS: Insulin LISPRO 300 UNITS/3 ML VIAL SQ SCH (09:00)
[2020-05-18] MEDS ORDERED: lisinopriL 20 MG TABLET PO SCH (09:00)
[2020-05-18] MEDS: Gabapentin 100 MG CAPSULE PO SCH (09:01)
[2020-05-18] MEDS: Sucralfate 1 GM TABLET PO SCH (09:01)
[2020-05-18 10:22] VITALS: BP 114/70
[2020-05-18] MEDS: Insulin DETEMIR 100 UNIT/ML X5UNITS SQ SCH ×2 (11:12→11:13)
== END 2020-05-18 11:32 | disposition home or self-care (01) ==
LOC: EMEROOARM 06:08 → 3ANU 06:08 → SUATTDRO 14:04 → 3ANU 14:30
PROVIDERS: ADMIT Pharmacist; ATTEND Internal Medicine

== ENCOUNTER 2020-09-17 19:20 | Inpatient (IN) ==
[2020-09-17] MEDS ORDERED: Isovue-370 500 ML BOTTLE IVP ONE (19:31)
[2020-09-17] MEDS ORDERED: Piperacillin/Tazobactam 3.375 GM in 0.9 % Sodium Chloride Mini Bag 100 ML IVPB ONE (19:31)
[2020-09-17 20:18] LABS: Basophils # 0.1 K/mcL (0.0-0.2); Eosinophils # 0.2 K/mcL (0.0-0.6); Eosinophils % 1.9 %; Hematocrit 39.6 % (37.5-50.1); Hemoglobin 13.7 g/dL (12.9-16.9); Immature Granulocytes % 2.4 % (0-4); Lymphocytes # 1.7 K/mcL (0.6-4.6); Lymphocytes % 15.5 %; Mean Corpuscular HGB Conc 34.6 g/dL (31.6-35.5); Mean Corpuscular Hemoglobin 30.5 pg (28.0-33.3); Mean Corpuscular Volume 88.2 fL (83.0-100.0); Monocytes # 1.2 K/mcL (0.0-1.3); Monocytes % 11.4 %; Neutrophils # 7.4 K/mcL (1.6-8.9); Platelet Count 269 K/mcL (140-400); Red Blood Count 4.49 M/mcL (4.19-5.50); Segmented Neutrophils % 67.8 %; White Blood Count 10.9 K/mcL (4.3-11.1)
[2020-09-17 20:24] LABS: INR 1.2; Prothrombin Time 13.7 Seconds (9.4-12.1)
[2020-09-17 20:32] LABS: Alanine Aminotransferase 14 Units/L (7-52); Albumin 3.5 g/dL (3.5-5.7); Albumin/Globulin Ratio 0.9 (1.1-2.2); Alkaline Phosphatase 78 Units/L (34-104); Aspartate Amino Transferase 12 Units/L (13-39); BUN/Creatinine Ratio 18 (6-26); Bilirubin,Total 0.9 mg/dL (0.3-1.0); Blood Urea Nitrogen 13 mg/dL (6-20); C-Reactive Protein 137 mg/L (Less than 10); Calcium 9.4 mg/dL (8.6-10.3); Carbon Dioxide 26 mEq/L (23-29); Chloride 98 mEq/L (98-107); Globulin 3.8 g/dL (2.4-3.5); Glucose 485 mg/dL (70-105); Osmolality,Calculated 298 (280-300); Sodium 133 mEq/L (136-145); Total Protein 7.3 g/dL (6.4-8.9); Uric Acid 4.5 mg/dL (2.3-7.6); eGFR For African Americans > 60 (> 60); eGFR For Non-African Americans > 60 (> 60)
[2020-09-17] MEDS ORDERED: Naloxone 0.4 MG/ML INJ IVP PRN (23:33)
[2020-09-17] MEDS ORDERED: Ondansetron 4 MG/2 ML VIAL IVP PRN (23:33)
[2020-09-17] MEDS ORDERED: Acetaminophen 325 MG TABLET PO PRN (23:33)
[2020-09-17] MEDS ORDERED: D5% in Water 1,000 ML IVC PRN (23:36)
[2020-09-17] MEDS ORDERED: Fluticasone Propionate Nasal 50 MCG/SPRAY BOTTLE NS PRN (23:36)
[2020-09-17] MEDS ORDERED: *HR* Dextrose 50 % in Water (Vial) 50 ML VIAL IVP PRN (23:36)
[2020-09-17] MEDS ORDERED: Dextrose Gel 15 GM/37.5 ML TUBE PO PRN ×2 (23:36)
[2020-09-17] MEDS ORDERED: Insulin LISPRO 300 UNITS/3 ML VIAL SQ SCH (23:45)
[2020-09-18] MEDS: *HR* HYDROcodone/Acet 5/325 mg TABLET PO PRN ×3 (00:56→21:09)
[2020-09-18 01:07] LABS: Basophils # 0.1 K/mcL (0.0-0.2); Basophils % 1.1 %; Eosinophils # 0.2 K/mcL (0.0-0.6); Eosinophils % 2.6 %; Hematocrit 36.2 % (37.5-50.1); Hemoglobin 12.9 g/dL (12.9-16.9); Immature Granulocytes % 2.2 % (0-4); Lymphocytes # 1.7 K/mcL (0.6-4.6); Lymphocytes % 20.5 %; Mean Corpuscular HGB Conc 35.6 g/dL (31.6-35.5); Mean Corpuscular Volume 89.8 fL (83.0-100.0); Mean Platelet Volume 9.5 fL (9.4-12.4); Monocytes # 0.9 K/mcL (0.0-1.3); Monocytes % 11.4 %; Neutrophils # 5.1 K/mcL (1.6-8.9); Platelet Count 230 K/mcL (140-400); Red Blood Count 4.03 M/mcL (4.19-5.50); Segmented Neutrophils % 62.2 %; White Blood Count 8.1 K/mcL (4.3-11.1)
[2020-09-18 01:26] LABS: BUN/Creatinine Ratio 23 (6-26); Blood Urea Nitrogen 13 mg/dL (6-20); Calcium 8.9 mg/dL (8.6-10.3); Carbon Dioxide 31 mEq/L (23-29); Chloride 101 mEq/L (98-107); Glucose 280 mg/dL (70-105); Osmolality,Calculated 296 (280-300); Phosphorous 3.5 mg/dL (2.7-4.5); Potassium 3.9 mEq/L (3.5-5.1); Sodium 138 mEq/L (136-145); eGFR For African Americans > 60 (> 60); eGFR For Non-African Americans > 60 (> 60)
[2020-09-18] MEDS ORDERED: 0.9 % Sodium Chloride 1,000 ML IVC ONE (01:43)
[2020-09-18] MEDS: 0.9 % Sodium Chloride 1,000 ML IVC SCH ×2 (02:18→14:04)
[2020-09-18] MEDS: Piperacillin/Tazobactam 3.375 GM in 0.9 % Sodium Chloride Mini Bag 100 ML IVPB SCH ×3 (04:23→21:14)
[2020-09-18] MEDS: *HR* Heparin 5,000 UNIT/ML VIAL SQ SCH ×3 (04:24→21:10)
[2020-09-18] MEDS ORDERED: Insulin LISPRO 300 UNITS/3 ML VIAL SQ SCH ×3 (07:30→21:00)
[2020-09-18] MEDS: lisinopriL 20 MG TABLET PO SCH (09:09)
[2020-09-18] MEDS: Loratadine 10 MG TABLET PO SCH (09:09)
[2020-09-18] MEDS: Venlafaxine XR (24 HR) 150 MG CAP.ER.24H PO SCH (09:09)
[2020-09-18] MEDS: Gabapentin 100 MG CAPSULE PO SCH ×3 (09:09→21:09)
[2020-09-18] MEDS: Vancomycin 1,500 MG/265 ML IV.SOLN IVPB SCH ×2 (09:11→21:12)
[2020-09-18] MEDS: Insulin LISPRO 300 UNITS/3 ML VIAL SQ SCH ×2 (13:48→17:44)
[2020-09-18] MEDS ORDERED: traZODone 50 MG TABLET PO SCH (21:00)
[2020-09-19] MEDS: Piperacillin/Tazobactam 3.375 GM in 0.9 % Sodium Chloride Mini Bag 100 ML IVPB SCH ×3 (03:53→20:50)
[2020-09-19] MEDS: *HR* Heparin 5,000 UNIT/ML VIAL SQ SCH ×3 (05:46→20:52)
[2020-09-19 08:42] LABS: Basophils # 0.1 K/mcL (0.0-0.2); Basophils % 1.1 %; Eosinophils # 0.3 K/mcL (0.0-0.6); Eosinophils % 3.3 %; Hemoglobin 12.7 g/dL (12.9-16.9); Immature Granulocytes % 2.3 % (0-4); Lymphocytes # 1.6 K/mcL (0.6-4.6); Lymphocytes % 19.3 %; Mean Corpuscular HGB Conc 35.3 g/dL (31.6-35.5); Mean Corpuscular Hemoglobin 31.4 pg (28.0-33.3); Mean Corpuscular Volume 89.1 fL (83.0-100.0); Mean Platelet Volume 9.4 fL (9.4-12.4); Monocytes # 0.8 K/mcL (0.0-1.3); Monocytes % 9.6 %; Neutrophils # 5.3 K/mcL (1.6-8.9); Platelet Count 229 K/mcL (140-400); Red Blood Count 4.04 M/mcL (4.19-5.50); Red Cell Distribution Width 10.8 % (11.5-14.5); Segmented Neutrophils % 64.4 %; White Blood Count 8.2 K/mcL (4.3-11.1)
[2020-09-19 08:49] LABS: Estimated Average Glucose 246 mg/dl
[2020-09-19 09:02] LABS: BUN/Creatinine Ratio 11 (6-26); Blood Urea Nitrogen 7 mg/dL (6-20); Calcium 8.6 mg/dL (8.6-10.3); Carbon Dioxide 28 mEq/L (23-29); Chloride 103 mEq/L (98-107); Glucose 227 mg/dL (70-105); Osmolality,Calculated 291 (280-300); Potassium 3.7 mEq/L (3.5-5.1); Sodium 138 mEq/L (136-145); eGFR For African Americans > 60 (> 60); eGFR For Non-African Americans > 60 (> 60)
[2020-09-19] MEDS: Insulin LISPRO 300 UNITS/3 ML VIAL SQ SCH ×4 (09:13→21:16)
[2020-09-19] MEDS: lisinopriL 20 MG TABLET PO SCH (09:16)
[2020-09-19] MEDS: Venlafaxine XR (24 HR) 150 MG CAP.ER.24H PO SCH (09:17)
[2020-09-19] MEDS: Gabapentin 100 MG CAPSULE PO SCH ×3 (09:17→20:53)
[2020-09-19] MEDS: *HR* HYDROcodone/Acet 5/325 mg TABLET PO PRN ×2 (09:17→23:24)
[2020-09-19] MEDS: Loratadine 10 MG TABLET PO SCH (09:17)
[2020-09-19] MEDS: Vancomycin 1,500 MG/265 ML IV.SOLN IVPB SCH ×3 (09:18→22:26)
[2020-09-19] MEDS ORDERED: *HR* Midazolam HCl 2 MG/2 ML VIAL ONE (13:09)
[2020-09-19] MEDS ORDERED: Lidocaine -MPF 2% 2 ML VIAL ONE (13:10)
[2020-09-19] MEDS ORDERED: *HR* Propofol 200 MG/20 ML VIAL IVP ONE (13:10)
[2020-09-19] MEDS ORDERED: Ondansetron 4 MG/2 ML VIAL ONE (13:12)
[2020-09-19] MEDS ORDERED: *HR* FentaNYL (PF) 100 MCG/2 ML VIAL ONE (13:12)
[2020-09-19] MEDS ORDERED: Lidocaine -MPF 4% 5 ML AMPUL ONE (13:12)
[2020-09-19] MEDS ORDERED: Dexamethasone 4 MG/ML VIAL ONE (13:12)
[2020-09-19] MEDS ORDERED: *HR* Succinylcholine 200 MG/10 ML VIAL IVP ONE (13:12)
[2020-09-19] MEDS ORDERED: Ondansetron 4 MG/2 ML VIAL IVP PRN ×3 (13:36→15:55)
[2020-09-19] MEDS ORDERED: *HR* Meperidine 25 MG/ML SYRINGE IVP PRN ×2 (13:36→15:55)
[2020-09-19] MEDS ORDERED: *HR* FentaNYL (PF) 100 MCG/2 ML VIAL IVP PRN ×2 (13:36→15:55)
[2020-09-19] MEDS ORDERED: ROPIVACAINE/PF/NS 0.25% 1 EACH SYRINGE INTRAART ONE (14:13)
[2020-09-19] MEDS ORDERED: *HR* Dextrose 50 % in Water (Vial) 50 ML VIAL IVP PRN (15:55)
[2020-09-19] MEDS ORDERED: Dextrose Gel 15 GM/37.5 ML TUBE PO PRN ×2 (15:55)
[2020-09-19] MEDS ORDERED: D5% in Water 1,000 ML IVC PRN (15:55)
[2020-09-19] MEDS ORDERED: Fluticasone Propionate Nasal 50 MCG/SPRAY BOTTLE NS PRN (15:55)
[2020-09-19] MEDS ORDERED: Acetaminophen 325 MG TABLET PO PRN (15:55)
[2020-09-19] MEDS ORDERED: Naloxone 0.4 MG/ML INJ IVP PRN (15:55)
[2020-09-19] MEDS: traZODone 50 MG TABLET PO SCH (20:54)
[2020-09-19] MEDS: Vancomycin 2,000 MG/520 ML IV.SOLN IVPB SCH (23:12)
[2020-09-20] MEDS: Piperacillin/Tazobactam 3.375 GM in 0.9 % Sodium Chloride Mini Bag 100 ML IVPB SCH ×3 (03:15→21:29)
[2020-09-20] MEDS: *HR* Heparin 5,000 UNIT/ML VIAL SQ SCH ×3 (05:35→21:37)
[2020-09-20 05:57] LABS: Basophils # 0.1 K/mcL (0.0-0.2); Eosinophils # 0.3 K/mcL (0.0-0.6); Eosinophils % 3.2 %; Hematocrit 34.8 % (37.5-50.1); Hemoglobin 12.2 g/dL (12.9-16.9); Immature Granulocytes % 2.2 % (0-4); Lymphocytes % 22.8 %; Mean Corpuscular HGB Conc 35.1 g/dL (31.6-35.5); Mean Corpuscular Hemoglobin 30.7 pg (28.0-33.3); Mean Corpuscular Volume 87.4 fL (83.0-100.0); Mean Platelet Volume 9.5 fL (9.4-12.4); Monocytes # 0.9 K/mcL (0.0-1.3); Monocytes % 10.6 %; Neutrophils # 5.3 K/mcL (1.6-8.9); Platelet Count 237 K/mcL (140-400); Red Blood Count 3.98 M/mcL (4.19-5.50); Segmented Neutrophils % 60.2 %; White Blood Count 8.7 K/mcL (4.3-11.1)
[2020-09-20 06:16] LABS: BUN/Creatinine Ratio 10 (6-26); Blood Urea Nitrogen 6 mg/dL (6-20); Calcium 8.6 mg/dL (8.6-10.3); Carbon Dioxide 31 mEq/L (23-29); Chloride 103 mEq/L (98-107); Glucose 267 mg/dL (70-105); Osmolality,Calculated 291 (280-300); Sodium 137 mEq/L (136-145); eGFR For African Americans > 60 (> 60); eGFR For Non-African Americans > 60 (> 60)
[2020-09-20] MEDS: Insulin LISPRO 300 UNITS/3 ML VIAL SQ SCH ×4 (08:12→21:35)
[2020-09-20] MEDS: Venlafaxine XR (24 HR) 150 MG CAP.ER.24H PO SCH (08:13)
[2020-09-20] MEDS: lisinopriL 20 MG TABLET PO SCH (08:13)
[2020-09-20] MEDS: Gabapentin 100 MG CAPSULE PO SCH ×3 (08:14→21:36)
[2020-09-20] MEDS: Loratadine 10 MG TABLET PO SCH (08:14)
[2020-09-20] MEDS: Vancomycin 2,000 MG/520 ML IV.SOLN IVPB SCH ×2 (10:25→22:59)
[2020-09-20] MEDS ORDERED: Ketorolac 15 MG/ML VIAL IVP PRN (11:26)
[2020-09-20] MEDS: *HR* HYDROcodone/Acet 5/325 mg TABLET PO PRN (15:27)
[2020-09-20] MEDS: traZODone 50 MG TABLET PO SCH (21:37)
[2020-09-21] MEDS: Piperacillin/Tazobactam 3.375 GM in 0.9 % Sodium Chloride Mini Bag 100 ML IVPB SCH ×3 (04:04→20:49)
[2020-09-21] MEDS: *HR* Heparin 5,000 UNIT/ML VIAL SQ SCH ×3 (04:08→20:50)
[2020-09-21 06:34] LABS: Hematocrit 35.9 % (37.5-50.1); Hemoglobin 12.6 g/dL (12.9-16.9); Mean Corpuscular HGB Conc 35.1 g/dL (31.6-35.5); Mean Corpuscular Hemoglobin 30.6 pg (28.0-33.3); Mean Corpuscular Volume 87.1 fL (83.0-100.0); Mean Platelet Volume 9.7 fL (9.4-12.4); Platelet Count 257 K/mcL (140-400); Red Blood Count 4.12 M/mcL (4.19-5.50)
[2020-09-21 06:56] LABS: BUN/Creatinine Ratio 15 (6-26); Blood Urea Nitrogen 9 mg/dL (6-20); Calcium 8.9 mg/dL (8.6-10.3); Carbon Dioxide 27 mEq/L (23-29); Chloride 102 mEq/L (98-107); Glucose 312 mg/dL (70-105); Osmolality,Calculated 291 (280-300); Potassium 3.8 mEq/L (3.5-5.1); Sodium 135 mEq/L (136-145); eGFR For African Americans > 60 (> 60); eGFR For Non-African Americans > 60 (> 60)
[2020-09-21] MEDS: Insulin LISPRO 300 UNITS/3 ML VIAL SQ SCH ×4 (08:32→21:05)
[2020-09-21] MEDS: lisinopriL 20 MG TABLET PO SCH (08:33)
[2020-09-21] MEDS: Venlafaxine XR (24 HR) 150 MG CAP.ER.24H PO SCH (08:33)
[2020-09-21] MEDS: Loratadine 10 MG TABLET PO SCH (08:33)
[2020-09-21] MEDS: Gabapentin 100 MG CAPSULE PO SCH ×3 (08:33→20:50)
[2020-09-21] MEDS: *HR* HYDROcodone/Acet 5/325 mg TABLET PO PRN (08:37)
[2020-09-21] MEDS ORDERED: Vancomycin 1,500 MG/265 ML IV.SOLN IVPB SCH (11:00)
[2020-09-21] MEDS: traZODone 50 MG TABLET PO SCH (20:51)
[2020-09-22] MEDS: *HR* Heparin 5,000 UNIT/ML VIAL SQ SCH (04:21)
[2020-09-22] MEDS: Piperacillin/Tazobactam 3.375 GM in 0.9 % Sodium Chloride Mini Bag 100 ML IVPB SCH ×2 (04:21→12:09)
[2020-09-22] MEDS: Venlafaxine XR (24 HR) 150 MG CAP.ER.24H PO SCH (08:16)
[2020-09-22] MEDS: Insulin LISPRO 300 UNITS/3 ML VIAL SQ SCH ×2 (08:17→12:09)
[2020-09-22] MEDS: Gabapentin 100 MG CAPSULE PO SCH (08:17)
[2020-09-22] MEDS: Loratadine 10 MG TABLET PO SCH (08:17)
[2020-09-22] MEDS: lisinopriL 20 MG TABLET PO SCH (08:17)
[2020-09-22 08:27] LABS: Hematocrit 38.6 % (37.5-50.1); Mean Corpuscular HGB Conc 33.7 g/dL (31.6-35.5); Mean Corpuscular Hemoglobin 29.7 pg (28.0-33.3); Mean Corpuscular Volume 88.3 fL (83.0-100.0); Mean Platelet Volume 9.6 fL (9.4-12.4); Platelet Count 267 K/mcL (140-400); Red Blood Count 4.37 M/mcL (4.19-5.50); White Blood Count 7.6 K/mcL (4.3-11.1)
[2020-09-22 08:47] LABS: BUN/Creatinine Ratio 20 (6-26); Blood Urea Nitrogen 12 mg/dL (6-20); Calcium 9.2 mg/dL (8.6-10.3); Carbon Dioxide 28 mEq/L (23-29); Chloride 102 mEq/L (98-107); Glucose 275 mg/dL (70-105); Osmolality,Calculated 292 (280-300); Sodium 136 mEq/L (136-145); eGFR For African Americans > 60 (> 60); eGFR For Non-African Americans > 60 (> 60)
[2020-09-22 10:30] VITALS: BP 150/93
== END 2020-09-22 15:16 | disposition home health service (06) | DRG 383 ==
LOC: 3ANU 19:20 → EMEROOARM 19:20 → SUATTDRO 23:48 → 3ANU 09-18 00:01 → SUATTDRO 09-19 16:02
PROVIDERS: ADMIT Student in an Organized Health Care Education/Training Program; ATTEND Internal Medicine

== ENCOUNTER 2021-06-23 06:15 | Observation (INO) ==
[2021-06-23 08:03] LABS: Basophils # 0.1 K/mcL (0.0-0.2); Basophils % 0.3 %; Eosinophils % 0.2 %; Hematocrit 46.7 % (37.5-50.1); Hemoglobin 16.5 g/dL (12.9-16.9); Immature Granulocytes % 0.7 % (0-4); Lymphocytes # 1.5 K/mcL (0.6-4.6); Lymphocytes % 9.9 %; Mean Corpuscular HGB Conc 35.3 g/dL (31.6-35.5); Mean Corpuscular Hemoglobin 31.3 pg (28.0-33.3); Mean Corpuscular Volume 88.4 fL (83.0-100.0); Mean Platelet Volume 10.8 fL (9.4-12.4); Monocytes # 1.5 K/mcL (0.0-1.3); Monocytes % 10.4 %; Neutrophils # 11.5 K/mcL (1.6-8.9); Platelet Count 231 K/mcL (140-400); Red Blood Count 5.28 M/mcL (4.19-5.50); Red Cell Distribution Width 11.4 % (11.5-14.5); Segmented Neutrophils % 78.5 %; White Blood Count 14.7 K/mcL (4.3-11.1)
[2021-06-23 08:10] LABS: BUN/Creatinine Ratio 22 (6-26); Blood Urea Nitrogen 25 mg/dL (6-20); Calcium 10.5 mg/dL (8.6-10.3); Carbon Dioxide 19 mEq/L (23-29); Chloride 92 mEq/L (98-107); Glucose 444 mg/dL (70-105); Osmolality,Calculated 302 (280-300); Potassium 4.2 mEq/L (3.5-5.1); Sodium 134 mEq/L (136-145); eGFR For African Americans > 60 (> 60); eGFR For Non-African Americans > 60 (> 60)
[2021-06-23] MEDS: 0.9 % Sodium Chloride 1,000 ML IVC SCH ×3 (08:11→14:13)
[2021-06-23 08:15] LABS: VBG HCO3 21 mEq/L (21-27); VBG PCO2 32 mmHg (41-51); VBG PH 7.42 pH Units (7.32-7.42); VBG PO2 52 mmHg (25-50)
[2021-06-23] MEDS ORDERED: Ondansetron 4 MG/2 ML VIAL IVP ONE ×2 (08:20→11:20)
[2021-06-23 08:38] LABS: Alanine Aminotransferase 17 Units/L (7-52); Albumin 4.4 g/dL (3.5-5.7); Albumin/Globulin Ratio 1.1 (1.1-2.2); Alkaline Phosphatase 86 Units/L (34-104); Aspartate Amino Transferase 14 Units/L (13-39); Bilirubin,Direct 0.3 mg/dL (0.0-0.2); Bilirubin,Indirect 1.6 mg/dL (0.0-1.0); Bilirubin,Total 1.9 mg/dL (0.3-1.0); Globulin 3.9 g/dL (2.4-3.5); Lipase 14 Units/L (11-82); Total Protein 8.3 g/dL (6.4-8.9)
[2021-06-23] MEDS ORDERED: Insulin Human Regular 10 UNIT in 0.9 % Sodium Chloride 10 ML IV ONE (11:19)
[2021-06-23] MEDS ORDERED: Acetaminophen 325 MG TABLET PO PRN (12:49)
[2021-06-23] MEDS ORDERED: Insulin Regular, Human 100 UNIT/ML IV PRN (12:49)
[2021-06-23] MEDS ORDERED: *HR* Dextrose 50 % in Water (Vial) 50 ML VIAL IVP PRN (12:49)
[2021-06-23] MEDS ORDERED: Ondansetron 4 MG/2 ML VIAL IVP PRN (12:49)
[2021-06-23] MEDS ORDERED: Naloxone 0.4 MG/ML INJ IVP PRN (12:49)
[2021-06-23] MEDS ORDERED: D5% in 0.45% NACL 1,000 ML IVC PRN (12:49)
[2021-06-23] MEDS ORDERED: Metoclopramide 10 MG/2 ML VIAL IVP PRN (12:56)
[2021-06-23 14:17] LABS: BUN/Creatinine Ratio 27 (6-26); Blood Urea Nitrogen 24 mg/dL (6-20); Calcium 9.1 mg/dL (8.6-10.3); Carbon Dioxide 18 mEq/L (23-29); Chloride 99 mEq/L (98-107); Glucose 359 mg/dL (70-105); Osmolality,Calculated 305 (280-300); Potassium 3.8 mEq/L (3.5-5.1); Sodium 138 mEq/L (136-145); eGFR For African Americans > 60 (> 60); eGFR For Non-African Americans > 60 (> 60)
[2021-06-23] MEDS: 0.45 % Sodium Chloride w/KCl 20 MEQ/1,000 ML MLS IVC SCH ×2 (14:52→21:17)
[2021-06-23 16:52] LABS: Bilirubin,Urine Negative (Negative); Blood,Urine Small (Negative); Clarity,Urine Clear (Clear); Color,Urine Colorless (Yellow); Glucose,Urine (UA) >=1000 mg/dL (Normal); Ketones,Urine >150 mg/dL (Negative); Leukocyte Esterase,Urine Negative (Negative); Nitrite,Urine Negative (Negative); PH,Urine 5.5 pH Units (5.0-8.0); Protein,Urine 50 mg/dL (Neg-Trace); RBC,Urine 0-3 per hpf (0-3); Specific Gravity,Urine > 1.030 (1.010-1.025); Urobilinogen,Urine Normal (Normal); WBC,Urine 0-3 per hpf (0-3)
[2021-06-23 17:10] LABS: BUN/Creatinine Ratio 26 (6-26); Blood Urea Nitrogen 25 mg/dL (6-20); Calcium 9.5 mg/dL (8.6-10.3); Carbon Dioxide 21 mEq/L (23-29); Chloride 102 mEq/L (98-107); Glucose 288 mg/dL (70-105); Osmolality,Calculated 305 (280-300); Potassium 3.7 mEq/L (3.5-5.1); Sodium 140 mEq/L (136-145); eGFR For African Americans > 60 (> 60); eGFR For Non-African Americans > 60 (> 60)
[2021-06-23] MEDS: D5% in 0.45% NACL w KCl 20 MEQ/1,000 ML MLS IVC PRN (21:12)
[2021-06-23] MEDS: *HR* Heparin 5,000 UNIT/ML VIAL SQ SCH (21:17)
[2021-06-23] MEDS: Pantoprazole 40 MG VIAL IVP SCH (21:17)
[2021-06-23 22:25] LABS: BUN/Creatinine Ratio 27 (6-26); Blood Urea Nitrogen 24 mg/dL (6-20); Calcium 9.1 mg/dL (8.6-10.3); Carbon Dioxide 21 mEq/L (23-29); Chloride 103 mEq/L (98-107); Glucose 231 mg/dL (70-105); Osmolality,Calculated 293 (280-300); Potassium 3.5 mEq/L (3.5-5.1); Sodium 136 mEq/L (136-145); eGFR For African Americans > 60 (> 60); eGFR For Non-African Americans > 60 (> 60)
[2021-06-23 23:24] LABS: VBG HCO3 25 mEq/L (21-27); VBG PCO2 48 mmHg (41-51); VBG PH 7.33 pH Units (7.32-7.42); VBG PO2 57 mmHg (25-50)
[2021-06-24] MEDS: 0.45 % Sodium Chloride w/KCl 20 MEQ/1,000 ML MLS IVC SCH ×2 (00:02→04:44)
[2021-06-24] MEDS: D5% in 0.45% NACL w KCl 20 MEQ/1,000 ML MLS IVC PRN (01:53)
[2021-06-24 02:20] LABS: Basophils # 0.1 K/mcL (0.0-0.2); Basophils % 0.3 %; Eosinophils # 0.1 K/mcL (0.0-0.6); Hematocrit 39.9 % (37.5-50.1); Immature Granulocytes % 0.8 % (0-4); Lymphocytes % 20.7 %; Mean Corpuscular HGB Conc 35.3 g/dL (31.6-35.5); Mean Corpuscular Hemoglobin 31.1 pg (28.0-33.3); Mean Corpuscular Volume 87.9 fL (83.0-100.0); Mean Platelet Volume 10.1 fL (9.4-12.4); Monocytes # 2.1 K/mcL (0.0-1.3); Monocytes % 14.4 %; Nucleated Red Blood Cells 0.1 /100 WBC (0); Platelet Count 233 K/mcL (140-400); Red Blood Count 4.54 M/mcL (4.19-5.50); Red Cell Distribution Width 11.5 % (11.5-14.5); Segmented Neutrophils % 62.8 %; White Blood Count 14.4 K/mcL (4.3-11.1)
[2021-06-24 02:22] LABS: Hemoglobin 14.1 g/dL (12.9-16.9)
[2021-06-24 02:42] LABS: BUN/Creatinine Ratio 27 (6-26); Blood Urea Nitrogen 21 mg/dL (6-20); Calcium 8.9 mg/dL (8.6-10.3); Carbon Dioxide 25 mEq/L (23-29); Chloride 106 mEq/L (98-107); Glucose 119 mg/dL (70-105); Osmolality,Calculated 294 (280-300); Potassium 3.1 mEq/L (3.5-5.1); Sodium 140 mEq/L (136-145); eGFR For African Americans > 60 (> 60); eGFR For Non-African Americans > 60 (> 60)
[2021-06-24 02:46] LABS: Magnesium 2.1 mg/dL (1.6-2.6); Phosphorous < 1.0 mg/dL (2.7-4.5)
[2021-06-24 02:59] LABS: Estimated Average Glucose 232 mg/dl; Hemoglobin A1C 9.7 %
[2021-06-24 03:03] LABS: Troponin I < 0.03 ng/mL (< 0.04)
[2021-06-24] MEDS ORDERED: Insulin DETEMIR 100 UNIT/ML X5UNITS SUBQ ONE (03:36)
[2021-06-24] MEDS: 0.9 % Sodium Chloride 1,000 ML IVC SCH (04:43)
[2021-06-24] MEDS: *HR* Heparin 5,000 UNIT/ML VIAL SQ SCH ×2 (06:11→17:31)
[2021-06-24] MEDS ORDERED: Potassium Chloride 20 MEQ, Lidocaine 1% 2 ML in 0.9 % Sodium Chloride 250 ML IVPB ONE (08:05)
[2021-06-24] MEDS: Insulin LISPRO 300 UNITS/3 ML VIAL SUBQ SCH ×3 (08:38→17:31)
[2021-06-24] MEDS: Pantoprazole 40 MG VIAL IVP SCH (08:39)
[2021-06-24] MEDS ORDERED: Potassium Phosphate 44 MEQ in 0.9 % Sodium Chloride 250 ML IVPB ONE (09:24)
[2021-06-24 14:41] LABS: BUN/Creatinine Ratio 18 (6-26); Blood Urea Nitrogen 14 mg/dL (6-20); Calcium 8.4 mg/dL (8.6-10.3); Carbon Dioxide 24 mEq/L (23-29); Chloride 100 mEq/L (98-107); Glucose 215 mg/dL (70-105); Osmolality,Calculated 281 (280-300); Potassium 3.6 mEq/L (3.5-5.1); Sodium 132 mEq/L (136-145); eGFR For African Americans > 60 (> 60); eGFR For Non-African Americans > 60 (> 60)
[2021-06-24] MEDS ORDERED: Insulin LISPRO 300 UNITS/3 ML VIAL SUBQ SCH (21:00)
[2021-06-25] MEDS: *HR* Heparin 5,000 UNIT/ML VIAL SQ SCH (05:48)
[2021-06-25 07:24] VITALS: O2SAT 98
[2021-06-25 07:51] LABS: Basophils % 0.5 %; Eosinophils # 0.1 K/mcL (0.0-0.6); Eosinophils % 1.4 %; Hematocrit 33.9 % (37.5-50.1); Immature Granulocytes % 1.2 % (0-4); Lymphocytes # 1.5 K/mcL (0.6-4.6); Lymphocytes % 19.4 %; Mean Corpuscular HGB Conc 36.3 g/dL (31.6-35.5); Mean Corpuscular Hemoglobin 31.8 pg (28.0-33.3); Mean Corpuscular Volume 87.6 fL (83.0-100.0); Mean Platelet Volume 10.4 fL (9.4-12.4); Monocytes # 0.9 K/mcL (0.0-1.3); Monocytes % 11.6 %; Neutrophils # 5.1 K/mcL (1.6-8.9); Platelet Count 184 K/mcL (140-400); Red Blood Count 3.87 M/mcL (4.19-5.50); Red Cell Distribution Width 11.1 % (11.5-14.5); Segmented Neutrophils % 65.9 %; White Blood Count 7.7 K/mcL (4.3-11.1)
[2021-06-25 07:58] LABS: Hemoglobin 12.3 g/dL (12.9-16.9)
[2021-06-25 08:27] LABS: Alanine Aminotransferase 10 Units/L (7-52); Albumin 3.1 g/dL (3.5-5.7); Albumin/Globulin Ratio 1.1 (1.1-2.2); Alkaline Phosphatase 58 Units/L (34-104); Aspartate Amino Transferase 12 Units/L (13-39); BUN/Creatinine Ratio 20 (6-26); Bilirubin,Total 1.2 mg/dL (0.3-1.0); Blood Urea Nitrogen 12 mg/dL (6-20); Calcium 8.4 mg/dL (8.6-10.3); Carbon Dioxide 24 mEq/L (23-29); Chloride 99 mEq/L (98-107); Globulin 2.8 g/dL (2.4-3.5); Glucose 226 mg/dL (70-105); Osmolality,Calculated 283 (280-300); Potassium 3.7 mEq/L (3.5-5.1); Sodium 133 mEq/L (136-145); Total Protein 5.9 g/dL (6.4-8.9); eGFR For African Americans > 60 (> 60); eGFR For Non-African Americans > 60 (> 60)
[2021-06-25] MEDS: Insulin LISPRO 300 UNITS/3 ML VIAL SUBQ SCH ×2 (08:53→11:16)
[2021-06-25] MEDS: Pantoprazole 40 MG VIAL IVP SCH (08:53)
[2021-06-25] MEDS ORDERED: Gabapentin 300 MG CAPSULE PO ONE (09:50)
[2021-06-25 11:16] VITALS: BP 140/85; PULSE 89; TEMP 98.4
[2021-06-25] MEDS ORDERED: *HR* HYDROcodone/Acet 7.5/325 mg TABLET PO PRN (12:28)
== END 2021-06-25 14:45 | disposition home or self-care (01) ==
LOC: 2NNU 06:15 → EMEROOARM 06:15 → SUATTDRO 17:31 → 2NNU 20:30
PROVIDERS: ADMIT Student in an Organized Health Care Education/Training Program; ATTEND Family Medicine